=== PATIENT | female | born 1980 | race African-American/Black ===

== ENCOUNTER → 2019-02-09 | Outpatient (CLI) | payer OTHER ==
--- NOTE | 2019-02-09 13:26 | XR ---
EXAMINATION TYPE: XR knee limited bilateral DATE OF EXAM: 02/09/2019 COMPARISON: None HISTORY: An 25.569 TECHNIQUE: 2 view bilateral knees FINDINGS: Medial tibial plateau and femoral condylar spurring is present. There may be minimal joint space narrowing on the right. Tibial plateau spurring and smaller on the right than the left. Lateral compartment joint spaces are preserved. No joint effusion is evident. IMPRESSION: 1. Mild degenerative joint changes medial compartment right knee.
== END | disposition home or self-care (01) ==
LOC: RADXRMAIN 11:42
PROVIDERS: ATTEND Internal Medicine
DX: M17.11 Unilateral primary osteoarthritis, right knee (principal)

== ENCOUNTER → 2019-03-20 | Outpatient (CLI) | payer OTHER ==
--- NOTE | 2019-03-20 13:22 | MR ---
EXAMINATION TYPE: MR knee RT wo con DATE OF EXAM: 03/20/2019 COMPARISON: Plain film dated 03/06/2019 HISTORY: Right knee pain TECHNIQUE: Multiplanar, multisequence imaging of the right knee is performed without IV contrast. FINDINGS: MEDIAL MENISCUS: Within the posterior horn of the medial meniscus there is some ill-defined increased signal present, somewhat stellate in pattern, coronal image #18 shows peripheral abnormal signal whi ch is thought to extend to the articular surface, sagittal image #7 shows a small focus of low signal measuring approximately 2 mm posteriorly and laterally which may represent a small fragment of menis cus. LATERAL MENISCUS: Anterior and posterior horns are intact without tear. CRUCIATE LIGAMENTS: The anterior and posterior cruciate ligaments are intact and unremarkable. COLLATERAL LIGAMENTS: The medial collateral ligament and lateral collateral ligament complex are inta ct and unremarkable. EXTENSOR MECHANISM: Visualized quadriceps and patellar tendons are intact. EFFUSION: There is a small joint effusion. POPLITEAL CYST: No popliteal/orr cyst. TRICOMPARTMENT SPACES: Maintained CARTILAGE: There is some cartilage irregularity, grade 2 to grade III chondromalacia or posttraumatic change involving the cartilage at the site of patient's marrow signal abnormality in the lateral fem oral condyle. BONE MARROW SIGNAL: Some increased marrow signal is noted on T2-weighted sequences along the lateral femoral condyle, some internal foci of linear low signal is present, serpiginous peripheral low signa l seen on T1-weighted images. At the lateral aspect of the femoral condyle on coronal image #13 and 1 2 there is some subchondral marrow signal change, possible reactive or post traumatic OTHER: There is subcutaneous edema present especially anteriorly at the level of the patellar tendon insertion, patellar tendon. Tricompartmental marginal spurring noted. IMPRESSION: Peripheral meniscal tear is suspected at the posterior horn the medial meniscus, osteoarthritic jason e, possible reactive marrow signal changes with focus of subchondral geode formation, possible osteoc hondral injury at the medial femoral condyle anteriorly
== END ==
LOC: RADMRIMAIN 10:30
PROVIDERS: ATTEND Orthopaedic Surgery
DX: M25.561 Pain in right knee (principal)

== ENCOUNTER 2021-03-26 13:15 | Emergency (ER) | payer OTHER ==
[2021-03-26 13:26] VITALS: BP 120/73; PULSE 88; RESP 16; TEMP 98.4
[2021-03-26] MEDS ORDERED: SODIUM CHLORIDE 0.9% 1,000 ML IV STA (13:48)
--- NOTE | 2021-03-26 13:52 | ED ---
General Adult HPI - General Chief complaint: Chest Pain Stated complaint: TELMA,chest pressure,lt shoulder pain,weakness Time Seen by Provider: 03/26/21 13:25 Source: patient, RN notes reviewed, old records reviewed Mode of arrival: ambulatory Limitations: no limitations - History of Present Illness Initial comments: This is a 41-year-old female who comes in complaining of lightheadedness and palpitations. Patient states she did not eat prior to arrival which she normally does. 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 Patient states on the way to the emergency department she drank a bottle of water and currently states she's already feeling better. Patient denies having ever had any chest pain I asked us on 3 different occasions and she stated that she did not know triaged indicated that. Patient also denied any shortness of breath or difficulty breathing. Patient denies any nausea or vomiting patient denies diarrhea. Patient denies any recent fever chills or cough. Patient denies any other problems at this time. - Related Data Home Medications Medication Instructions Recorded Confirmed No Known Home Medications 12/26/17 12/26/17 Allergies Allergy/AdvReac Type Severity Reaction Status Date / Time No Known Allergies Allergy Verified 03/26/21 13:25 Review of Systems ROS Statement: Those systems with pertinent positive or pertinent negative responses have been documented in the HPI. ROS Other: All systems not noted in ROS Statement are negative. Past Medical History Past Medical History: Osteoarthritis (OA) History of Any Multi-Drug Resistant Organisms: None Reported Past Surgical History: No Surgical Hx Reported Past Psychological History: No Psychological Hx Reported Smoking Status: Never smoker Past Alcohol Use History: None Reported Past Drug Use History: None Reported General Exam - General Exam Comments Initial Comments: GENERAL: Patient is well-developed and well-nourished. Patient is nontoxic and well- hydrated and is in no acute distress. ENT: Neck is soft and supple. No significant lymphadenopathy is noted. Oropharynx is clear. Moist mucous membranes. Neck has full range of motion without eliciting any pain. EYES: The sclera were anicteric and conjunctiva were pink and moist. Extraocular movements were intact and pupils were equal round and reactive to light. Eyelids were unremarkable. PULMONARY: Unlabored respirations. Good breath sounds bilaterally. No audible rales rhonchi or wheezing was noted. CARDIOVASCULAR: There is a regular rate and rhythm without any murmurs gallops or rubs. ABDOMEN: Soft and nontender with normal bowel sounds. SKIN: Skin is clear with no lesions or rashes and otherwise unremarkable. NEUROLOGIC: Patient is alert and oriented x3. Cranial nerves II through XII are grossly intact. Motor and sensory are also intact. Normal speech, volume and content. Symmetrical smile. MUSCULOSKELETAL: Normal extremities with adequate strength and full range of motion. LYMPHATICS: No significant lymphadenopathy is noted PSYCHIATRIC: Normal psychiatric evaluation. Limitations: no limitations Course Vital Signs 03/26/21 13:23 Temperature 98.4 F Pulse Rate 88 Respiratory 16 Rate Blood Pressure 120/73 O2 Sat by Pulse 100 Oximetry Medical Decision Making - Medical Decision Making EKG shows normal sinus rhythm at 71 bpm OK interval is 202 QRS is 102 QT interval 36 QTC is 419. Patient's EKG shows no ST segment elevation or depression. Patient was feeling better and refused all workup. Disposition Clinical Impression: Lightheadedness, Palpitations Disposition: HOME SELF-CARE Is patient prescribed a controlled substance at d/c from ED?: No Referrals: None,Stated [Primary Care Provider] - 1-2 days Time of Disposition: 14:14
== END 2021-03-26 14:26 | disposition home or self-care (01) ==
LOC: EC 13:15
DX: R07.89 Other chest pain (principal); R42 Dizziness and giddiness; R53.1 Weakness; R00.2 Palpitations; M25.512 Pain in left shoulder
CPT/HCPCS: 93005; 99284

== ENCOUNTER 2021-09-19 15:08 | Emergency (ER) | payer OTHER ==
[2021-09-19 15:43] VITALS: BP 131/87; PULSE 85; RESP 20; TEMP 98.8
[2021-09-19 16:10] LABS: Basophils % (A) 0 %; Eosinophils # (A) 0.3 k/uL (0-0.7); Eosinophils % (A) 2 %; HCT 36.2 % (34.0-46.0); Hypochromasia Slight; Lymphocytes # (A) 1.8 k/uL (1.0-4.8); Lymphocytes % (A) 13 %; MCH 25.1 pg (25.0-35.0); MCHC 30.5 g/dL (31.0-37.0); MCV 82.3 fL (80.0-100.0); Mean Platelet Volume 6.8; Monocytes # (A) 0.6 k/uL (0-1.0); Monocytes % (A) 4 %; Neutrophils # (A) 11.1 k/uL (1.3-7.7); Neutrophils % (A) 80 %; Platelet Count 484 k/uL (150-450); RBC 4.39 m/uL (3.80-5.40); RDW 13.7 % (11.5-15.5); WBC 13.9 k/uL (3.8-10.6)
[2021-09-19 16:19] LABS: ALT 15 U/L (4-34); AST 19 U/L (14-36); African American GFR (CKD) >90 (>60 ml/min/1.73 sqM); Albumin 4.2 g/dL (3.5-5.0); Alkaline Phosphatase 64 U/L (38-126); Anion Gap 11 mmol/L; Blood Urea Nitrogen 10 mg/dL (7-17); Calcium 9.1 mg/dL (8.4-10.2); Carbon Dioxide 20 mmol/L (22-30); Chloride 105 mmol/L (98-107); Glucose 91 mg/dL (74-99); Non-African American GFR(CKD) >90 (>60 ml/min/1.73 sqM); Potassium 3.9 mmol/L (3.5-5.1); Sodium 136 mmol/L (137-145); Total Bilirubin 0.5 mg/dL (0.2-1.3); Total Protein 7.6 g/dL (6.3-8.2)
== END 2021-09-19 21:50 | disposition left against medical advice (07) ==
LOC: EC 15:08
DX: Z53.21 Procedure and treatment not carried out due to patient leaving prior to being seen by health care provider (principal)
CPT/HCPCS: 36415; 80053; 85025; 99499

== ENCOUNTER → 2022-04-20 | Outpatient (CLI) | payer OTHER ==
--- NOTE | 2022-04-20 11:26 | US ---
EXAMINATION TYPE: US OB >= 14 wk fetus DATE OF EXAM: 04/20/2022 COMPARISON: None CLINICAL HISTORY: Z34.90 ENCNTR FOR SUPRVSN OF NORMAL , UNSP Growth measurements per order. TECHNIQUE: Transabdominal (TA) GESTATIONAL AGE / DATING Physician Established: (22 weeks/6 days) EDC: 08/18/2022 Dates by Current Scan: (22 weeks/5 days) EDC: 08/19/2022 SURVEY IUP: Single PLACENTA: Fundal Anterior PREVIA: No Previa DAVID: 17.1 cm Normal CERVICAL LENGTH (transabdominal: norm > 3.0cm): 3.2 cm BIOMETRY PRESENTATION: Breech BPD: 5.4 cm cm 22 weeks / 3 days HC: 20.7 cm 22 weeks / 6 days AC: 17.6 cm 22 weeks / 4 days FL: 4.0 cm 22 weeks / 6 days ESTIMATED WEIGHT IN GRAMS: 522 grams ESTIMATED WEIGHT IN LBS/OZ: 1 lbs. 2 oz. WEIGHT PERCENTAGE BASED ON ESTABLISHED DATES: 33% HC/AC: 1.2 Normal FL/AC: 23% Normal HEART RATE: 136 bpm RHYTHM: Normal Single live IUP measuring 22 weeks 5 days. IMPRESSION: Single live intrauterine gestation with estimated age of 22 weeks 5 days and estimated due date of .
== END | disposition home or self-care (01) ==
LOC: RADUSWWP 10:40
PROVIDERS: ATTEND Obstetrics & Gynecology
DX: Z34.92 Encounter for supervision of normal pregnancy, unspecified, second trimester (principal); Z3A.22 22 weeks gestation of pregnancy
CPT/HCPCS: 76805

== ENCOUNTER → 2022-07-25 | Outpatient (CLI) | payer OTHER ==
[2022-07-25 23:11] VITALS: BP 122/78; PULSE 86; RESP 16; TEMP 98.5
== END ==
LOC: FBPOP 20:36
PROVIDERS: ATTEND Obstetrics & Gynecology Obstetrics
DX: O36.8131 Decreased fetal movements, third trimester, fetus 1 (principal); O99.333 Smoking (tobacco) complicating pregnancy, third trimester; F17.200 Nicotine dependence, unspecified, uncomplicated
CPT/HCPCS: 59025; G0463; 99213